=== PATIENT | male | born 1980 | race African-American/Black ===

== ENCOUNTER 2017-05-12 06:40 | Emergency (ER) | payer OTHER ==
[~2017-05-12] VITALS: Ht 177.8 cm; Wt 92.7 kg
[2017-05-12 07:45] LABS: HEMATOCRIT 44.3 % (38.0-50.0); MCH 27.6 PG (29.0-34.0); MCHC 32.3 G/DL (30.0-36.0); MCV 85.4 FL (86-99); MEAN PLAT.VOLUME 10.9 uM^3 (9.0-12.4); PLATELET COUNT 180 K/uL (156-360); RBC DIS.WIDTH-CV 12.7 % (11.8-14.6); RBC DIS.WIDTH-SD 39.4 % (39-53); RED BLOOD COUNT 5.19 M/uL (4.00-5.50); WHITE BLOOD COUNT 5.6 K/uL (4.1-10.2)
[2017-05-12 08:13] LABS: ANION GAP 7 MEQ/L (2-14); CHLORIDE 104 MEQ/L (99-109); POTASSIUM 3.9 MEQ/L (3.7-5.4); SAMPLE HEMOLYSIS CHECK 0; SAMPLE ICTERIC CHECK 0; SAMPLE LIPEMIA CHECK 0; SODIUM 139 MEQ/L (136-147); TOTAL BILIRUBIN 0.3 MG/DL (0.0-1.0)
[2017-05-12 08:14] LABS: ADD MIUA? NO; BILIRUBIN NEGATIVE; BLOOD NEGATIVE; COLOR YELLOW ((YELLOW)); GLUCOSE (STRIP) NEGATIVE; KETONES NEGATIVE; LEUKOCYTES NEGATIVE; NITRITE NEGATIVE; PROTEIN (STRIP) NEGATIVE; SPECIFIC GRAVITY 1.021 (1.000-1.030); UCUL ADDED? NO; UROBILINOGEN 0.2 MG/DL (0.2-1.0)
[2017-05-12 08:19] LABS: ALKALINE PHOSPHATASE 54 IU/L (3-129); GFR ESTIMATE (CALCULATED) > 59 mL/min/; GLUCOSE 119 mg/dL (70-99); UREA NITROGEN (BUN) 13 mg/dL (9-23)
[2017-05-12] MEDS ORDERED: FLAGYL500 MG PO (08:53)
[2017-05-12] MEDS ORDERED: ZOFRAN ODT4 MG PO (08:53)
[2017-05-12] MEDS ORDERED: ULTRAM50 MG PO (08:53)
[2017-05-12] MEDS ORDERED: CIPRO500 MG PO (08:53)
[2017-05-12 09:11] VITALS: BP 131/79
== END 2017-05-12 09:11 | disposition home or self-care (01) ==
LOC: EME 06:40 → EDSEX 06:40 → EME 09:11
DX: K52.9 Noninfective gastroenteritis and colitis, unspecified (principal); Z88.6 Allergy status to analgesic agent
CPT/HCPCS: 74176; 80053; 81003; 84702; 85027; 99281; 99285; J1885; J2270; J2405; J7030